=== PATIENT | female | born 1995 | race Two or more races ===

== ENCOUNTER 2023-12-23 12:48 | Emergency (ER) | payer SELFPAY ==
[~2023-12-23] VITALS: Ht 172.7 cm; Wt 87.9 kg
[2023-12-23 14:53] VITALS: TEMP 98.1; O2SAT 98
[2023-12-23 16:02] VITALS: BP 107/54; PULSE 69; RESP 18
[2023-12-23] MEDS: MORPHINE SULFATE INJ 2 MG/ml SYRG IM ONE (16:02)
[2023-12-23] MEDS ORDERED: NAPR-746 PO (16:12)
[2023-12-23] MEDS ORDERED: CYCL-837 PO (16:12)
== END 2023-12-23 16:12 | disposition home or self-care (01) ==
LOC: ER 12:48
DX: R07.81 Pleurodynia (principal); M54.59 Other low back pain; Z79.899 Other long term (current) drug therapy; V89.2XXA Person injured in unspecified motor-vehicle accident, traffic, initial encounter; Y93.I9 Activity, other involving external motion; Y92.89 Other specified places as the place of occurrence of the external cause; Y99.8 Other external cause status
CPT/HCPCS: 71045; 96372; 99283; J2270